=== PATIENT | male | born 1975 | race Caucasian/White ===

== ENCOUNTER 2018-04-15 01:26 | Emergency (ER) | payer BC | END 2018-04-15 01:57 | disposition left against medical advice (07) | LOC: ER 01:26 | DX: Z53.21 Procedure and treatment not carried out due to patient leaving prior to being seen by health care provider (principal) ==

== ENCOUNTER 2019-10-08 13:12 | Emergency (ER) | payer BC, OTHER ==
[~2019-10-08] VITALS: Ht 170.2 cm; Wt 86.2 kg
[2019-10-08] MEDS ORDERED: HYDCOR2.5C PR (15:53)
[2019-10-08] MEDS ORDERED: Colace100 MG PO (15:53)
[2019-10-08] MEDS ORDERED: [UNRECOGNIZED DRUG - OTHER] TOP (15:53)
== END 2019-10-08 15:57 | disposition home or self-care (01) ==
LOC: ER 13:12
DX: K64.4 Residual hemorrhoidal skin tags (principal)
CPT/HCPCS: 99283

== ENCOUNTER → 2022-03-15 | Outpatient (CLI) | payer OTHER ==
[~2022-03-15] MED LIST: Colace100 MG PO; HYDCOR2.5C PR; [UNRECOGNIZED DRUG - OTHER] TOP
[2022-03-15 14:09] LABS: BASOPHILS ABSOLUTE AUTO 0.03 K/mm3 (0.00-0.23); BASOPHILS PERCENT AUTO 0 % (0-2); EOSINOPHILS ABSOLUTE AUTO 0.03 K/mm3 (0.00-0.68); EOSINOPHILS PERCENT AUTO 0 % (0-6); Hematocrit 45.6 % (37.0-53.0); Hemoglobin 16.9 g/dL (13.5-17.5); IMMATURE GRAN ABSOLUTE AUTO 0.04 K/mm3 (0.00-0.10); IMMATURE GRAN PERCENT AUTO 1 % (0-1); LYMPHOCYTES ABSOLUTE AUTO 0.58 K/mm3 (0.84-5.20); LYMPHOCYTES PERCENT AUTO 8 % (21-46); MONOCYTES ABSOLUTE AUTO 0.58 K/mm3 (0.16-1.47); MONOCYTES PERCENT AUTO 8 % (4-13); Mean Corpuscular HGB 33.1 pg (26.0-34.0); Mean Corpuscular HGB Conc 37.1 g/dL (31.5-36.5); Mean Corpuscular Volume 89 fL (80-100); NEUTROPHILS PERCENT AUTO 83 % (41-73); Platelet Count 141 K/mm3 (150-400); RDW Standard Deviation 39.3 fL (35.1-46.3); Red Blood Cell Count 5.11 M/mm3 (4.30-5.90); White Blood Cell Count 7.46 K/mm3 (4.00-11.30)
[2022-03-15 14:29] LABS: Albumin, Blood 4.8 g/dL (3.4-5.0); Albumin/Globulin Ratio 1.3 (0.8-1.8); Bilirubin, Total 1.6 mg/dL (0.1-1.0); Bun/Creatinine Ratio 12.6 (12.0-20.0); Calcium, Blood 9.9 mg/dL (8.5-10.1); Creatinine, Blood 1.03 mg/dL (0.60-1.20); Globulin, Blood 3.8 g/dL (2.2-4.0); Potassium, Blood 3.9 mmol/L (3.5-5.5); Thyroid Stimulating Hormone 1.784 uIU/mL (0.360-4.800); Total Protein, Blood 8.6 g/dL (6.4-8.2)
== END | disposition home or self-care (01) ==
LOC: LAB SHORT 14:04 → LAB 14:04
PROVIDERS: Physician Assistant
DX: I10 Essential (primary) hypertension (principal)
CPT/HCPCS: 80053; 84443; 85025